=== PATIENT | male | born 1985 | race Caucasian/White ===

== ENCOUNTER 2016-05-27 09:50 | Emergency (ER) | payer MEDICAID ==
[~2016-05-27] VITALS: Ht 193 cm; Wt 113.4 kg
[~2016-05-27 09:50] MED LIST: AMOXICILLIN500 MG ORAL; BENTYL10 MG ORAL; CIPROFLOXACIN500 M2 ORAL; PROMETHAZINE-D118 ML ORAL; ZOFRAN ODT4 MG ORAL
[2016-05-27] MEDS ORDERED: NEURONTIN100 MG ORAL (10:00)
[2016-05-27] MEDS ORDERED: Tetracaine 0.5% Opth Soln ONE (10:31)
[2016-05-27] MEDS ORDERED: Fluorescein Strips ONE (10:31)
[2016-05-27] MEDS ORDERED: Fluorescein Strips RIGHT EYE ONE (10:45)
[2016-05-27] MEDS ORDERED: Tetracaine 0.5% Opth Soln RIGHT EYE ONE (10:45)
[2016-05-27] MEDS ORDERED: ERYTHROMYCIN3.5 GM RIGHT EYE (11:02)
[2016-05-27 11:10] VITALS: BP 133/84
--- NOTE | 2016-05-28 07:49 | Emergency Room Report ---
History of Present Illness General Chief Complaint: Eye Problems Source: Patient Present Illness HPI 30-year-old male presents ED complaining of right eye pain, photophobia, discharge x 2 days. She states she went to clinic today which told him to come to ER to "rule out retinal detachment". She states that he has. patient has discharge from his right eye along with swelling around the right eye. Notes photophobia. Denies blurry vision. Denies fevers or chills. Patient states that he recently had oral intercourse which could have contributed to his symptoms today. Pain is throbbing, 7/10, nonradiating. No other aggravating or relieving factors. Denies any other associated symptoms Allergies: Coded Allergies: No Known Allergies (Unverified , 10/27/14) Patient History Past Medical History: psych hx Past Surgical History: none Pertinent Family History: none Social History: Denies: alcohol use, drug use, smoking Immunizations: UTD Reviewed Nursing Documentation: PMH: Agreed, PSxH: Agreed Nursing Documentation-PMH Past Medical History: No History, Except For History Of Psychiatric Problem: Yes - Bipolar Review of Systems All Other Systems: negative except mentioned in HPI Physical Exam Vital Signs Date Time Temp Pulse Resp B/P Pulse Ox O2 Delivery O2 Flow Rate FiO2 05/27/16 09:54 98.2 76 16 131/83 99 05/27/16 11:10 Room Air Sp02 EP Interpretation: reviewed, normal General Appearance: no apparent distress, alert, GCS 15, non-toxic Head: normocephalic, atraumatic Eyes: right eye Scleral Injection, right eye other - discharge, right eye visual acuity ENT: hearing grossly normal, normal pharynx, no angioedema, normal voice, TMs + canals normal Neck: full range of motion, supple/symm/no masses Respiratory: chest non-tender, lungs clear, normal breath sounds, speaking full sentences Cardiovascular #1: regular rate, rhythm, no edema Gastrointestinal: normal inspection Rectal: deferred Genitourinary: no CVA tenderness Musculoskeletal: normal inspection Neurologic: alert, oriented x3, responsive, motor strength/tone normal, sensory intact, speech normal Psychiatric: normal inspection Skin: normal inspection Lymphatic: normal inspection Procedures Additional Procedure Procedure Narrative Bedside ocular ultrasound: Patient placed in supine position. Tegaderm placed over each eye. Using sterile technique I applied the ultrasound probe over the right eye. The globe is intact and there is no evidence of free body suggestive of a retinal detachment. The left eye was also evaluated for comparison I also showed no signs of retinal detachment. Medical Decision Making Diagnostic Impression: Primary Impression: Conjunctivitis Qualified Codes: H10.31 - Unspecified acute conjunctivitis, right eye ER Course Hospital Course 30-year-old M presents to ED with red eye redness, pain and watery discharge Differential diagnoses include: conjunctivitis, traumatic iritis, foreign body, corneal abrasion Clinical course Patient placed on stretcher. After initial history and physical I performed bedside ultrasound of both eyes and the was no evidence of retinal detachment. Given patient's history of recent unprotected intercourse there is a likelihood of a gonococcal conjunctivitis Tetracaine and fluorescein applied to the right eye. With bueno lamp I do not see any evidence of dendrites or signs of corneal abrasion We will treat the patient accordingly for a gonococcal conjunctivitis with prescription for erythromycin ophthalmic. However encourage patient to followup with ophthalmology promptly Diagnosis - conjunctivitis Stable and discharged to home with prescription for erythromycin opthalmic. Followup with PMD/Optho. Return to ED if symptoms recur or worsen Last Vital Signs Date Time Temp Pulse Resp B/P Pulse Ox O2 Delivery O2 Flow Rate FiO2 05/27/16 11:10 97.7 76 18 133/84 98 Room Air Status: improved Disposition: HOME, SELF-CARE Condition: Stable Scripts Erythromycin Base (ERYTHROMYCIN*) 3.5 Gm Oint...g. 1 APPLIC RIGHT EYE Q4HR for 7 Days, #3.5 GM 0 Refills Prov: EVA JACK M.D. 05/27/16 Departure Forms: Return to Work Return to Work Date: May 28, 2016 Work Restrictions: None Patient Instructions: Bacterial Conjunctivitis EVA JACK M.D. May 28, 2016 07:48
== END 2016-05-27 11:10 | disposition home or self-care (01) ==
LOC: EMR 10:10
DX: H10.31 Unspecified acute conjunctivitis, right eye (principal); F31.9 Bipolar disorder, unspecified
CPT/HCPCS: 99284

== ENCOUNTER 2016-06-15 11:34 | Emergency (ER) | payer MEDICAID ==
[~2016-06-15] VITALS: Ht 193 cm; Wt 113.4 kg
[~2016-06-15 11:34] MED LIST changes: +ERYTHROMYCIN3.5 GM RIGHT EYE; +NEURONTIN100 MG ORAL
[2016-06-15] MEDS ORDERED: DuoNeb 0.5-3(2.5)mg/3ml neb HHN ONE (12:30)
[2016-06-15] MEDS ORDERED: PredniSONE 20mg tab ORAL ONE (12:30)
[2016-06-15] MEDS ORDERED: ALBUTEROL SULF8.5 GM INH (12:48)
[2016-06-15] MEDS ORDERED: PREDNISONE20 MG ORAL (12:48)
[2016-06-15 13:25] VITALS: BP 124/88
--- NOTE | 2016-06-15 13:56 | Diagnostic Imaging Report ---
Indication: SOB Technique: One view of the chest Comparison: none Findings: Lungs and pleural spaces are clear. Heart size is normal Impression: No acute process
--- NOTE | 2016-06-16 13:34 | Emergency Room Report ---
History of Present Illness General Chief Complaint: Upper Respiratory Illness Source: Patient Present Illness HPI Patient is a 30-year-old male presented after increased cough and difficulty breathing. He patient had gradual onset of symptoms. Patient had increased nasal congestion and a intermittently productive cough. Patient had recently quit smoking. Patient was noted to have increased yellow-green sputum. Patient had increased nasal congestion. He denied fever. He denied any new sick contacts.Patient prior history of asthma but is not currently taking inhaler. Allergies: Coded Allergies: Cat Dander (Verified Allergy, Unknown, 06/15/16) Patient History Past Medical History: see triage record Reviewed Nursing Documentation: PMH: Agreed, PSxH: Agreed Nursing Documentation-PMH Past Medical History: No Stated History Review of Systems All Other Systems: negative except mentioned in HPI Physical Exam Vital Signs Date Time Temp Pulse Resp B/P Pulse Ox O2 Delivery O2 Flow Rate FiO2 06/15/16 11:37 97.9 81 22 148/93 98 Room Air General Appearance: well appearing, no apparent distress, alert, GCS 15 Head: normocephalic, atraumatic ENT: hearing grossly normal, normal voice Neck: full range of motion, supple Respiratory: no respiratory distress, speaking full sentences Cardiovascular #1: normal inspection, normal peripheral pulses, regular rate, rhythm Gastrointestinal: normal inspection, normal bowel sounds, soft Musculoskeletal: normal inspection, no calf tenderness Neurologic: normal inspection, alert, oriented x3, responsive, normal gait Psychiatric: mood/affect normal Skin: no rash Medical Decision Making Diagnostic Impression: Primary Impression: Bronchitis ER Course Patient presented for cough.Differential diagnosis included but was not limited to bronchitis, pneumonia, pulmonary embolism, pericarditis, asthma, foreign body. Patient was given breathing treatment with some improvement. Chest x-ray one view read by radiologist showed no acute process.The patient appears to have some bronchitis. The patient given prescription for inhaler as well as cough medication.The patient is advised to follow up with primary care doctor in 1-2 days. Patient is advised to return if any worsening condition or if any changes in status that are concerning. Last Vital Signs Date Time Temp Pulse Resp B/P Pulse Ox O2 Delivery O2 Flow Rate FiO2 06/15/16 13:25 97.8 64 17 124/88 98 Room Air Status: improved Disposition: HOME, SELF-CARE Condition: Stable Scripts Albuterol Sulfate* (ALBUTEROL SULFATE MDI*) 8.5 Gm Hfa.aer.ad 2 PUFF INH Q4H Y for cough/wheezing, #1 EA 0 Refills Prov: Thad Crane 06/15/16 Prednisone* (PREDNISONE*) 20 Mg Tablet 40 MG ORAL DAILY, #10 TAB Prov: Thad Crane 06/15/16 Patient Instructions: Acute Bronchitis Thad Crane Jun 16, 2016 13:34
== END 2016-06-15 13:27 | disposition home or self-care (01) ==
LOC: EMR 12:00
DX: J20.9 Acute bronchitis, unspecified (principal); Z87.891 Personal history of nicotine dependence; Z91.048 Other nonmedicinal substance allergy status; J45.909 Unspecified asthma, uncomplicated
CPT/HCPCS: 71010; 94640; 94664; 99284; J7620

== ENCOUNTER 2016-06-18 12:57 | Emergency (ER) | payer MEDICAID ==
[~2016-06-18] VITALS: Ht 193 cm; Wt 113.4 kg
[~2016-06-18 12:57] MED LIST changes: +ALBUTEROL SULF8.5 GM INH; +PREDNISONE20 MG ORAL
[2016-06-18 13:30] VITALS: BP 125/86
[2016-06-18] MEDS ORDERED: PROMETHAZINE-D118 ML ORAL (13:32)
[2016-06-18] MEDS ORDERED: ZITHROMAX250 MG ORAL (13:32)
[2016-06-18 13:49] VITALS: BP 125/86
--- NOTE | 2016-06-18 17:02 | Emergency Room Report ---
History of Present Illness General Chief Complaint: Upper Respiratory Illness Source: Patient Present Illness HPI The patient is a 30-year-old male who denies any medical history presenting for continued cough and fever which began one week prior. The patient was seen in this emergency department 3 days prior and diagnosed with bronchitis after chest x-ray. The patient was discharged home with a prescription for albuterol and prednisone. Patient states these medications have only mildly been helping. The patient states he has been unable to sleep due to the cough. The patient has not tried any other medications. Patient denies other symptoms including N, V, TAPIA, neck pain, stiffness, fatigue, CP, SOB Allergies: Coded Allergies: Cat Dander (Verified Allergy, Unknown, 06/15/16) Patient History Past Medical History: see triage record Pertinent Family History: none Reviewed Nursing Documentation: PMH: Agreed, PSxH: Agreed Nursing Documentation-PMH Past Medical History: No Stated History Review of Systems All Other Systems: negative except mentioned in HPI Physical Exam Vital Signs Date Time Temp Pulse Resp B/P Pulse Ox O2 Delivery O2 Flow Rate FiO2 06/18/16 13:30 74 17 Room Air 06/18/16 13:30 97.9 125/86 98 Sp02 EP Interpretation: reviewed, normal General Appearance: no apparent distress, alert, GCS 15, non-toxic Head: normocephalic, atraumatic Eyes: bilateral eye PERRL, bilateral eye normal inspection ENT: hearing grossly normal, normal pharynx, no angioedema, normal voice, uvula midline, moist mucus membranes Neck: full range of motion, supple/symm/no masses Respiratory: normal inspection, chest non-tender, wheezing - minimal diffuse Cardiovascular #1: regular rate, rhythm, no edema Musculoskeletal: back normal, gait/station normal, normal range of motion, non- tender Neurologic: alert, oriented x3, responsive, motor strength/tone normal, sensory intact, speech normal Psychiatric: judgement/insight normal, memory normal, mood/affect normal, no suicidal/homicidal ideation Skin: normal color, no rash, warm/dry, well hydrated Lymphatic: no adenopathy Medical Decision Making PA Attestation Dr. Alvarado is my supervising physician. Patient management was discussed with my supervising physician Diagnostic Impression: Primary Impression: Bronchitis ER Course The patient is a 30-year-old male presenting for continued cough and fever Differential diagnosis include but not limited to pharyngitis, sinusitis, AOM, bronchitis, PNA PE: afebrile NAD. HEENT unremarkable. No cervical lymphad Lungs: there is diffuse minimal wheezing. no resp distress Skin warm and dry. The pt will be TX'ed home with an addition to the medications he is currently taking including cough medication and antibiotics. ER precautions given and the pt will FU with PMD Last Vital Signs Date Time Temp Pulse Resp B/P Pulse Ox O2 Delivery O2 Flow Rate FiO2 06/18/16 13:49 97.9 17 125/86 98 Room Air 06/18/16 13:30 74 Status: improved Disposition: HOME, SELF-CARE Condition: Improved Scripts D-Methorphan Hb/Prometh Hcl* (PROMETHAZINE-DM SYRUP*) 118 Ml Syrup 5 ML ORAL Q6H Y for For Cough, #118 ML 0 Refills Prov: LATOYA JONES 06/18/16 Azithromycin* (ZITHROMAX*) 250 Mg Tablet 250 MG ORAL DAILY, #6 TAB 0 Refills Take two tables once daily for 1 day, then one tablet once daily for 4 days. Prov: LATOYA JONES 06/18/16 Referrals: [facility],REFERR[facility] (PCP) Patient Instructions: Acute Bronchitis Additional Instructions: I discussed my findings with the patient. All questions and concerns have been answered. Treatment and medication compliance have been addressed. I advised the patient that they need to follow up with PMD in 3-5 days. Return to ED if pain remains or worsens, cough worsens or remains, you notice blood in your sputum, you notice wheezing, you experience a fever, or if needed for any reason. Patient verbalized understanding of discharge instructions. LATOYA JONES Jun 18, 2016 17:02
== END 2016-06-18 13:49 | disposition home or self-care (01) ==
LOC: EMR 13:29
DX: J40 Bronchitis, not specified as acute or chronic (principal)
CPT/HCPCS: 99284